=== PATIENT | male | born 1995 | race Caucasian/White ===

== ENCOUNTER 2020-07-01 18:27 | Emergency (ER) | payer OTHER, SELFPAY ==
[2020-07-01 19:19] VITALS: BP 139/89; PULSE 93; RESP 16; TEMP 36.8; O2SAT 98; BMI 28.7
--- NOTE | 2020-07-01 21:01 | W.ED.SKABFB ---
HPI - Skin/Abscess/Foreign Bdy General: Chief complaint: General Medical Stated complaint: poss poison kendra Time Seen by Provider: 07/01/20 21:01 Source: patient Mode of arrival: ambulatory Limitations: no limitations History of Present Illness: HPI narrative: Patient is a 24-year-old male presents to ED today with complaint of possible poison kendra. Patient states he noticed a rash to his bilateral upper extremities, neck, and abdomen after mowing the yard and doing other yard work yesterday. He states he has had poison kendra previously and feels like the rash is identical. He is describing it as a burning pruritic rash. He has no other complaints at this time. MD complaint: rash Onset (ago): hour(s) Tetanus up to date: yes Location: generalized Severity: moderate Quality: burning and pruritic Relieving factors: none Exacerbating factors: none Context: other (mowing yard) Associated symptoms: Deny chills, fever(s) or nausea Treatments prior to arrival: none Review of Systems Const: Denies: fever(s), chills, body aches, fatigue or malaise Eyes: Denies: change in vision, blurry vision or photophobia Card: Denies: chest pain Resp: Denies: dyspnea GI: Denies: abdominal pain or nausea Musc: Denies: neck pain, back pain, extremity pain or joint pain Skin/Breast: Reports: rash Neuro: Denies: headache(s), numbness in extremities, weakness in extremities or sensory changes Physical Exam Const: COMMON NORMALS: no acute distress, average body habitus, patient oriented x3, no limitations, healthy appearing, alert and well nourished HENMT: COMMON NORMALS: normocephalic and atraumatic HEAD & SCALP: normocephalic and atraumatic FACE & SINUS: normal facial exam (apart from mild rash) Eye: GENERAL EYE: appearance normal, both eyes and all related structures Extremity: GENERAL: Yes normal exam except as noted (rash) Neuro: COMMON NORMALS: patient oriented x3 SENSORIUM/ORIENTATION: Yes alert Skin: NARRATIVE SKIN EXAM: contact dermatitis to bilateral UE flexural creases of elbows, across lower abdomen, L side of neck and mildly onto face Course Vital Signs: Vital signs: Vital Signs Temperature 98.2 F 07/01/20 19:19 Pulse Rate 93 07/01/20 19:19 Respiratory Rate 16 07/01/20 19:19 Blood Pressure 139/89 07/01/20 19:19 Pulse Oximetry 98 07/01/20 19:19 Discharge Plan Discharge Patient Disposition: Home Clinical Impression: Contact dermatitis due to poison kendra Condition: Stable Discharge Orders: Discharge ED (Routine); Ordered 07/01/20 Ordered By: Jaylin Rodríguez Patient Instructions: Poison Kendra (ED), Poison Kendra, [place], and [place] - Adult Coding Level of Care Code ED Health 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
[2020-07-01] MEDS: hydrocortisone 100 mg/2 mL SDV 75 MG IM (21:19)
[2020-07-01] MEDS: triamcinolone 40 mg/mL SDV IM (21:19)
== END 2020-07-01 22:01 | disposition home or self-care (01) ==
PROVIDERS: Emergency Provider Physician Assistant
DX: L23.7 Allergic contact dermatitis due to plants, except food (principal)
CPT/HCPCS: 96372; 99283; J1720; J3301